=== PATIENT | male | born 1985 | race Caucasian/White ===

== ENCOUNTER 2017-08-25 13:59 | Emergency (ER) | payer MEDICAID ==
[~2017-08-25] VITALS: Ht 180.3 cm; Wt 193.0 kg
[2017-08-25] MEDS ORDERED: dexamethasone sod phosphate 10mg/ml inj IM STA (17:56)
[2017-08-25 19:11] VITALS: BP 167/17
== END 2017-08-25 19:12 | disposition home or self-care (01) ==
LOC: ER 13:59
DX: R21 Rash and other nonspecific skin eruption (principal); T78.40XA Allergy, unspecified, initial encounter; Y92.9 Unspecified place or not applicable
CPT/HCPCS: 96372; 99283; J1100